=== PATIENT | male | born 1955 | race Caucasian/White ===

== ENCOUNTER 2016-09-14 08:14 | Emergency (ER) | payer OTHER ==
[2016-09-14 08:27] VITALS: BP 151/78
--- NOTE | 2016-09-14 09:15 | UC ---
Dizzy HPI HPI Summary: Motion sickness, dizziness started 2 days ago, worsened last night: room spinning and nausea when lying down and turning head. Head feels full. He tells me that he doesnt ever feel well. has psoriatic arthritris and recently started embrel. His states that junior thinks it is bc the embrel. IDDM. last a1c was 4 mo ago in 9 range, which was improved. he has appt next wk for labs and pcp chronic ov. Has facial pressure and pain. always has numbing in arms and legs. no fever. no slurred speech, no weakness, slurred speech or confusion. He feels room spinniong dizziness, doesnt feel like he will pass out. sx occur when he moves suddenly, changes position or turning his head. nausea occurs with the room spinning. - History Of Current Complaint Chief Complaint: UCDizziness Stated Complaint: NAUSEA,DIZZY Time Seen by Provider: 09/14/16 08:42 - Allergies/Home Medications Allergies/Adverse Reactions: Allergies Allergy/AdvReac Type Severity Reaction Status Date / Time Cefuroxime [From Ceftin] Allergy Hallucinati Verified 11/07/12 12:12 ons metformin Allergy Diarrhea Uncoded 09/14/16 08:27 Home Medications: Home Medications Diclofenac Sodium EC TAB* [Voltaren EC TAB*] 75 mg PO TID PRN 09/14/16 [History Confirmed 09/14/16] Etanercept SYR (NF) [Enbrel (NF)] 50 mg SUBCUT Q7D 09/14/16 [History Confirmed 09/14/16] Exenatide [Bydureon] 2 mg SC WEEKLY 09/14/16 [History Confirmed 09/14/16] Triamcinolone 0.1% Oint (NF) [Triamcinolone Acetonide] 1 dose TOPICAL ONCE 09/14 [History Confirmed 09/14/16] PMH/Surg Hx/FS Hx/Imm Hx Previously Healthy: No - chronic illnesses listed below. Endocrine History Of: Reports: Diabetes - insulin Cardiovascular History Of: Reports: Hypertension - Surgical History Surgical History: None - Family History Known Family History: Positive: Diabetes - Social History Alcohol Use: None Substance Use Type: Marijuana Substance Use Comment - Amount & Last Used: not lately Smoking Status (MU): Former Smoker Review of Systems Constitutional: Negative, Fatigue Skin: Negative Eyes: Negative ENT: Negative, Other - sinus pressure Respiratory: Negative Cardiovascular: Negative Gastrointestinal: Vomiting, Other - nausea Genitourinary: Negative Motor: Negative Neurovascular: Negative Musculoskeletal: Arthralgia - psoriatic arthritis Neurological: Paresthesia - chronic Psychological: Negative All Other Systems Reviewed And Are Negative: Yes Physical Exam Triage Information Reviewed: Yes Appearance: Well-Appearing, No Pain Distress - mild distress, Well-Nourished Vital Signs: Initial Vital Signs Temp 97.8 F 09/14/16 08:17 Pulse 75 09/14/16 08:17 Resp 18 09/14/16 08:17 BP 151/78 09/14/16 08:17 Pulse Ox 97 09/14/16 08:17 Vital Signs Reviewed: Yes Eye Exam: Normal, Other - + b/l nystagmus horiziontal, no vertical nystagmus Eyes: Positive: Conjunctiva Clear ENT: Positive: Hearing grossly normal, Pharynx normal, Tonsillar exudate, Other : - b/l maxillary and frontal tenderness Neck exam: Normal Neck: Positive: Supple, Nontender, No Lymphadenopathy, Other: - no bruits Respiratory Exam: Normal Respiratory: Positive: Lungs clear, Normal breath sounds, No respiratory distress, No accessory muscle use Cardiovascular Exam: Normal Cardiovascular: Positive: RRR, No Murmur, Pulses Normal, Brisk Capillary Refill Abdominal Exam: Normal Abdomen Description: Positive: Nontender - obese., Soft Musculoskeletal Exam: Normal Neurological Exam: Other Neurological: Positive: Alert, Muscle Tone Normal - neg rhomberg, no pronator drift, strength 5/5 b/l UE and LE. Psychological Exam: Normal Skin Exam: Normal Dizzy Course/Dx - Differential Dx/Diagnosis Differential Diagnosis/HQI/PQRI: Benign Paroxysmal Positional Vertigo, Labyrinthitis, Meniere's Disease, Transient Ischemic Attack, Vasovagal Reaction Provider Diagnoses: sinusitis, labyrinthitis Discharge - Discharge Plan Condition: Stable Disposition: HOME Prescriptions: Amoxicillin (*) 875 mg PO BID #20 tab Meclizine HCl [Meclizine 25] 25 mg PO Q6HR PRN #20 tab PRN Reason: Nausea Patient Education Materials: Sinusitis (ED), Labyrinthitis (ED) Referrals: Tamara Crystal MD [Primary Care Provider] - 1 Day Additional Instructions: Watch for any signs of stroke that we reviewed today - one sided weakness, numbing, slurred speech, facial droop, confusion. Watch your blood sugars with infection and go to ER if > 400. Hold the embrel until your obstetrician/gynecologist wants you to restart. You said you have an appt there in 4 days.
== END 2016-09-14 09:55 | disposition home or self-care (01) ==
LOC: UCCORT 08:14
DX: J32.9 Chronic sinusitis, unspecified (principal); H83.09 Labyrinthitis, unspecified ear; E11.9 Type 2 diabetes mellitus without complications; Z79.4 Long term (current) use of insulin; M06.9 Rheumatoid arthritis, unspecified; Z88.1 Allergy status to other antibiotic agents; Z88.8 Allergy status to other drugs, medicaments and biological substances; Z87.891 Personal history of nicotine dependence
CPT/HCPCS: 99212; G0463

== ENCOUNTER 2018-02-03 09:11 | Emergency (ER) | payer OTHER ==
--- OUTSIDE RECORDS SUMMARY | 2018-02-03 09:19 | XMS REPORT ---
:1955 External Reference #:[id number] Author Organization [facility] Address [address] [address] Phone [phone] Care Team Providers Name Role Phone Tamara Crystal MD Primary Care Physician Unavailable Payers Type Date Identification Numbers Payment Provider Subscriber Commercial Policy Number: [id number] [employer] [place] PayID: [id number] [address] [place] [address] Problems Description No Information Family History Date Family Member(s) Problem(s) Comments General Rheumatoid Arthritis General GM with Ra, father had psoriasis Social History Type Date Description Comments ETOH Use Denies alcohol use Smoking Patient is a former smoker Pt. smoked for 6-7 years less than a pack a day. quit in 1977. Exercise Type/Frequency Used to play golf sporadically Allergies, Adverse Reactions, Alerts Date Description Reaction Status Severity Comments 04/21/2016 Metformin active loose stools 04/21/2016 Ceftin active hives Medications Medication Date Status Form Strength Qnty SIG Indications Ordering Provider Wrist Brace 02/14/ Active Misc 2units use for the L40.59 Stew 2017 wrists daily to amber Burris M.D. tunnel syndrome Wrist Splint 02/14/ Active Misc 2units use daily to L40.59 Stew 2017 help with carpal zulma Burris syndrome Gloria.DGlenda Humira Pen 01/18/ Active PNKT 40mg/0.8ML 18unit inject 40 mg L40.50 Stew Will s subcutaneously cheryl Burris other week Sarah L40.59 L40.9 Folic Acid 09/18/2016 Active Tablets 1mg 90tabs 1 by mouth Z79.899 Stew every day [place], M.D. Methotrexate 09/18/2016 Active Tablets 2.5m 90tabs Take 6 L40.59 Stew g capsules/tablet [place], s by mouth once M.D. weekly Lisinopril Active Tablets 20mg 1 by mouth Unknown every day Triamcinolone Active Ointment 0.1% every day as L40.9 Unknown Acetonide needed Trulicity Active Solution 1.5m inject Unknown Pen-Injec g/0. subcutaneously t 5ML weekly Farxiga Active Tablets 10mg 1 by mouth Unknown every day Basaglar Active Solution 100U 48 units daily Unknown Kwikpen Pen-Injec nit/ t ML Nabumetone Active Tablets 750m 2 tabs every Unknown g morning Oxycodone HCL Active Capsules 1-2 tabs by Unknown mouth every 6 hours as needed pain Cosentyx 06/26/2017 - Hx Soln 150m 2ml inject 150 mg L40.50 07/20/2017 Prefill g/ml sc weekly for 4 [place], Syringe weeks then SQ M.D. every 4 weeks L40.59 L40.9 Cymbalta 02/14/2017 - Hx Caps DR Moreno 30mg 42caps 1 by mouth every Stew 03/26/2017 day for 1 week [place], then 2 daily M.D. ongoing Ibuprofen 01/11/2017 - Hx Capsules 200mg as needed L40. Zsofia 01/11/2017 59 Stephen, BATT PACKER Humira 01/11/2017 - Hx PSKT 40mg/0.8 6units inject 40 mg L40. Stew 01/18/2017 ML subcutaneous 50 [place], once every other M.D. week prefilled syringe L40.59 L40.9 Wrist Splint 01/11/2017 - Hx Misc 2units use daily G56.00 Stew 02/14/2017 to help [place], with M.D. numbness and tingling in the right and left hand Ibuprofen 11/27/2016 - Hx Tablets 800m 90tabs 1 tab by L40.59 Zsofia 01/11/2017 g mouth three Stephen, times a day BATT PACKER as needed Diclofenac 07/03/2016 - Hx Tablets DR 75mg 60tabs take one L40.59 Zsofia Sodium 11/27/2016 tablet by Stephen, mouth twice BATT PACKER a day Enbrel 05/15/2016 - Hx Solution 50mg 3.92units inject one L40.50 Zsofia Sureclick 01/11/2017 Auto-Inject /ml pen (50 mg) Stephen, under the BATT PACKER skin every week L40.59 L40.9 Otezla 04/21/2016 - Hx Tablets 30mg 60tabs 1 by mouth L40.50 Stew 05/15/2016 twice a Dayton, day, do M.D. not start until you are finished with the sample pack we provided today Otezla 04/21/2016 - Hx TBPK 10& QS day1:10mg Stew 05/15/2016 20& am, Dayton, 30mg day2:10 mg M.D. bid,day3: 10mg am, 20mg pm, day4:20mg bid, day5: 20mg am, 30 mg pm, then continue on 30 mg bid. Bydureon - Hx Pen 2mg inject 2 Unknown 01/11/2017 mg sc weekly Cyclobenzaprine - Hx Tablets 10mg one by Unknown HCL 04/21/2016 mouth three times a day as needed spasm Furosemide - Hx Tablets 20mg Does Not Unknown 01/11/2017 Take Lantus Solostar - Hx Solution 100Unit 40 units Unknown 01/11/2017 Pen-Inject /ML twice daily Humalog - Hx Solution 100Unit sliding Unknown 03/26/2017 /ML scale Nabumetone - Hx Tablets 750mg take one Unknown 03/26/2017 tablet by mouth twice a day Medications Administered in Office Medication Date Status Form Strength Qnty SIG Indications Ordering Provider PPD Administered Injection Stew Burris M.D. Immunizations CPT Code Status Date Vaccine Reaction Lot # [id number] Given 06/26/2017 Pneumonia Vaccine no reaction noted [id number] Given 06/26/2017 Influenza Virus Vaccine, no immediate reaction [id number] Quadrivalent, Split, noted Preservative Free 29973 Given 07/03/2016 Influenza Virus Vaccine, [id number] Quadrivalent, Split Virus, Im Use 11494 Given 05/15/2016 Pneumococcal Conjugate No reaction noted [id number] Vaccine 13 Valent For Intramuscular Use Vital Signs Date Vital Result Comment 01/23/2018 Height 72 inches 6'0" Weight 352.00 lb Heart Rate 68 /min BP Systolic Sitting 160 mmHg BP Diastolic Sitting 110 mmHg Respiratory Rate 16 /min Pain Level 8 BMI (Body Mass Index) 47.7 kg/m2 09/26/2017 Height 72 inches 6'0" Weight 346.00 lb Heart Rate 72 /min BP Systolic Sitting 140 mmHg BP Diastolic Sitting 88 mmHg Respiratory Rate 16 /min Body Temperature 98.2 F Pain Level 6 BMI (Body Mass Index) 46.9 kg/m2 06/26/2017 Height 72 inches 6'0" Weight 345.25 lb Heart Rate 75 /min BP Systolic 135 mmHg BP Diastolic 85 mmHg Body Temperature 98.1 F O2 % BldC Oximetry 95 % BMI (Body Mass Index) 46.8 kg/m2 03/26/2017 Height 72 inches 6'0" Weight 345.00 lb Heart Rate 80 /min BP Systolic Sitting 140 mmHg BP Diastolic Sitting 90 mmHg Respiratory Rate 14 /min Pain Level 5 BMI (Body Mass Index) 46.8 kg/m2 02/14/2017 Height 72 inches 6'0" Weight 354.00 lb Heart Rate 80 /min BP Systolic Sitting 150 mmHg BP Diastolic Sitting 84 mmHg Respiratory Rate 20 /min Pain Level 8 BMI (Body Mass Index) 48.0 kg/m2 01/11/2017 Height 72 inches 6'0" Weight 354.00 lb Heart Rate 88 /min BP Systolic Sitting 134 mmHg BP Diastolic Sitting 70 mmHg Respiratory Rate 16 /min Pain Level 8 BMI (Body Mass Index) 48.0 kg/m2 11/27/2016 Weight 346.00 lb Heart Rate 88 /min BP Systolic Sitting 138 mmHg BP Diastolic Sitting 84 mmHg Respiratory Rate 15 /min Pain Level 7 O2 % BldC Oximetry 97 % 09/18/2016 Weight 362.31 lb Heart Rate 95 /min BP Systolic Sitting 130 mmHg BP Diastolic Sitting 8 mmHg Pain Level 7 07/03/2016 Height 72 inches 6'0" Weight 361.00 lb Heart Rate 87 /min BP Systolic Sitting 130 mmHg BP Diastolic Sitting 80 mmHg O2 % BldC Oximetry 97 % BMI (Body Mass Index) 49.0 kg/m2 05/15/2016 Height 72 inches 6'0" Weight 361.25 lb Heart Rate 84 /min BP Systolic Sitting 130 mmHg BP Diastolic Sitting 90 mmHg Respiratory Rate 18 /min Body Temperature 97.8 F Pain Level 7 BMI (Body Mass Index) 49.0 kg/m2 04/21/2016 Height 72 inches 6'0" Weight 361.00 lb Heart Rate 72 /min BP Systolic Sitting 140 mmHg BP Diastolic Sitting 90 mmHg Respiratory Rate 20 /min Body Temperature 97.6 F Pain Level 7 BMI (Body Mass Index) 49.0 kg/m2 Results Test Date Test Result H/L Range Note Laboratory test finding 01/18/2018 C Reactive Protein 9.14 mg/L High < 5.00 1 Erythrocyte Sed Rate 22 mm/Hr High 0-20 CBC Auto Diff 01/18/2018 White Blood Count 7.8 10^3/uL 3.5-10.8 Red Blood Count 4.87 10^6/uL 4.0-5.4 Hemoglobin 15.1 g/dL 14.0-18.0 Hematocrit 44 % 42-52 Mean Corpuscular Volume 89 fL 80-94 Mean Corpuscular Hemoglobin 31 pg 27-31 Mean Corpuscular HGB Conc 35 g/dL 31-36 Red Cell Distribution Width 15 % 10.5-15 Platelet Count 245 10^3/uL 150-450 Mean Platelet Volume 10.1 um3 7.4-10.4 Abs Neutrophils 5.0 10^3/uL 1.5-7.7 Abs Lymphocytes 1.8 10^3/uL 1.0-4.8 Abs Monocytes 0.7 10^3/uL 0-0.8 Abs Eosinophils 0.2 10^3/uL 0-0.6 Abs Basophils 0.1 10^3/uL 0-0.2 Abs Nucleated RBC 0 10^3/uL Granulocyte % 64.2 % 38-83 Lymphocyte % 23.3 % Low 25-47 Monocyte % 9.2 % High 0-7 Eosinophil % 2.2 % 0-6 Basophil % 1.1 % 0-2 Nucleated Red Blood Cells % 0.1 Comp Metabolic Panel 01/18/2018 Sodium 141 mmol/L 139-145 Potassium 4.8 mmol/L 3.5-5.0 Chloride 108 mmol/L 101-111 Co2 Carbon Dioxide 25 mmol/L 22-32 Anion Gap 8 mmol/L 2-11 Glucose 163 mg/dL High 70-100 Blood Urea Nitrogen 16 mg/dL 6-24 Creatinine 0.98 mg/dL 0.67-1.17 BUN/Creatinine Ratio 16.3 8-20 Calcium 9.1 mg/dL 8.6-10.3 Total Protein 6.9 g/dL 6.4-8.9 Albumin 3.9 g/dL 3.2-5.2 Globulin 3.0 g/dL 2-4 Albumin/Globulin Ratio 1.3 1-3 Total Bilirubin 0.40 mg/dL 0.2-1.0 Alkaline Phosphatase 62 U/L 34-104 Alt 22 U/L 7-52 Ast 16 U/L 13-39 Egfr Non- 77.0 >60 Egfr 99.0 >60 2 Laboratory test finding 09/21/2017 Erythrocyte Sed Rate 29 mm/Hr High 0- 20 3 C Reactive Protein 10.81 mg/L High < 5.00 4 CBC Auto Diff 09/21/2017 White Blood Count 8.0 10^3/uL 3.5-10.8 Red Blood Count 5.31 10^6/uL 4.0-5.4 Hemoglobin 16.4 g/dL 14.0-18.0 Hematocrit 48 % 42-52 Mean Corpuscular Volume 90 fL 80-94 Mean Corpuscular Hemoglobin 31 pg 27-31 Mean Corpuscular HGB Conc 34 g/dL 31-36 Red Cell Distribution Width 13 % 10.5-15 Platelet Count 257 10^3/uL 150-450 Mean Platelet Volume 10 um3 7.4-10.4 Abs Neutrophils 5.3 10^3/uL 1.5-7.7 Abs Lymphocytes 1.7 10^3/uL 1.0-4.8 Abs Monocytes 0.8 10^3/uL 0-0.8 Abs Eosinophils 0.1 10^3/uL 0-0.6 Abs Basophils 0.1 10^3/uL 0-0.2 Abs Nucleated RBC 0.1 10^3/uL Granulocyte % 66.4 % 38-83 Lymphocyte % 21.1 % Low 25-47 Monocyte % 9.9 % High 1-9 Eosinophil % 1.6 % 0-6 Basophil % 1.0 % 0-2 Nucleated Red Blood Cells % 0.6 Comp Metabolic Panel 09/21/2017 Sodium 137 mmol/L 133-145 Potassium 4.5 mmol/L 3.5-5.0 Chloride 104 mmol/L 101-111 Co2 Carbon Dioxide 27 mmol/L 22-32 Anion Gap 6 mmol/L 2-11 Glucose 167 mg/dL High 70-100 Blood Urea Nitrogen 19 mg/dL 6-24 Creatinine 1.05 mg/dL 0.67-1.17 BUN/Creatinine Ratio 18.1 8-20 Calcium 9.7 mg/dL 8.6-10.3 Total Protein 7.5 g/dL 6.4-8.9 Albumin 4.2 g/dL 3.2-5.2 Globulin 3.3 g/dL 2-4 Albumin/Globulin Ratio 1.3 1-3 Total Bilirubin 0.40 mg/dL 0.2-1.0 Alkaline Phosphatase 59 U/L 34-104 Alt 21 U/L 7-52 Ast 15 U/L 13-39 Egfr Non- 71.3 >60 Egfr 91.7 >60 5 Laboratory test finding 06/21/2017 C Reactive Protein 8.81 mg/L High < 5.00 6 Erythrocyte Sed Rate 20 mm/Hr 0-20 7 CBC Auto Diff 06/21/2017 White Blood Count 7.0 10^3/uL 3.5-10.8 Red Blood Count 4.92 10^6/uL 4.0-5.4 Hemoglobin 15.5 g/dL 14.0-18.0 Hematocrit 44 % 42-52 Mean Corpuscular Volume 90 fL 80-94 Mean Corpuscular Hemoglobin 32 pg High 27-31 Mean Corpuscular HGB Conc 35 g/dL 31-36 Red Cell Distribution Width 14 % 10.5-15 Platelet Count 263 10^3/uL 150-450 Mean Platelet Volume 10 um3 7.4-10.4 Abs Neutrophils 4.0 10^3/uL 1.5-7.7 Abs Lymphocytes 2.0 10^3/uL 1.0-4.8 Abs Monocytes 0.8 10^3/uL 0-0.8 Abs Eosinophils 0.1 10^3/uL 0-0.6 Abs Basophils 0.1 10^3/uL 0-0.2 Abs Nucleated RBC 0 10^3/uL Granulocyte % 57.2 % 38-83 Lymphocyte % 28.3 % 25-47 Monocyte % 11.7 % High 1-9 Eosinophil % 1.8 % 0-6 Basophil % 1.0 % 0-2 Nucleated Red Blood Cells % 0 Comp Metabolic Panel 06/21/2017 Sodium 137 mmol/L 133-145 Potassium 4.3 mmol/L 3.5-5.0 Chloride 103 mmol/L 101-111 Co2 Carbon Dioxide 27 mmol/L 22-32 Anion Gap 7 mmol/L 2-11 Glucose 174 mg/dL High 70-100 Blood Urea Nitrogen 18 mg/dL 6-24 Creatinine 1.00 mg/dL 0.67-1.17 BUN/Creatinine Ratio 18.0 8-20 Calcium 9.3 mg/dL 8.6-10.3 Total Protein 6.8 g/dL 6.4-8.9 Albumin 3.9 g/dL 3.2-5.2 Globulin 2.9 g/dL 2-4 Albumin/Globulin Ratio 1.3 1-3 Total Bilirubin 0.40 mg/dL 0.2-1.0 Alkaline Phosphatase 48 U/L 34-104 Alt 25 U/L 7-52 Ast 15 U/L 13-39 Egfr Non- 75.5 >60 Egfr 97.1 >60 8 Laboratory test finding 02/12/2017 C Reactive Protein 10.53 mg/L High &lt ; 5.00 9 Erythrocyte Sed Rate 29 mm/Hr High 0-20 10 Comp Metabolic Panel 02/12/2017 Sodium 133 mmol/L 133-145 Potassium 4.4 mmol/L 3.5-5.0 Chloride 101 mmol/L 101-111 Co2 Carbon Dioxide 25 mmol/L 22-32 Anion Gap 7 mmol/L 2-11 Glucose 218 mg/dL High 70-100 Blood Urea Nitrogen 15 mg/dL 6-24 Creatinine 0.91 mg/dL 0.67-1.17 BUN/Creatinine Ratio 16.5 8-20 Calcium 9.2 mg/dL 8.6-10.3 Total Protein 6.9 g/dL 6.4-8.9 Albumin 3.9 g/dL 3.2-5.2 Globulin 3.0 g/dL 2-4 Albumin/Globulin Ratio 1.3 1-3 Total Bilirubin 0.40 mg/dL 0.2-1.0 Alkaline Phosphatase 52 U/L 34-104 Alt 31 U/L 7-52 Ast 18 U/L 13-39 Egfr Non- 84.1 >60 Egfr 108.2 >60 11 CBC Auto Diff 02/12/2017 White Blood Count 9.2 10^3/uL 3.5-10.8 Red Blood Count 4.86 10^6/uL 4.0-5.4 Hemoglobin 15.0 g/dL 14.0-18.0 Hematocrit 44 % 42-52 Mean Corpuscular Volume 90 fL 80-94 Mean Corpuscular Hemoglobin 31 pg 27-31 Mean Corpuscular HGB Conc 34 g/dL 31-36 Red Cell Distribution Width 14 % 10.5-15 Platelet Count 257 10^3/uL 150-450 Mean Platelet Volume 10 um3 7.4-10.4 Abs Neutrophils 5.6 10^3/uL 1.5-7.7 Abs Lymphocytes 2.6 10^3/uL 1.0-4.8 Abs Monocytes 0.7 10^3/uL 0-0.8 Abs Eosinophils 0.1 10^3/uL 0-0.6 Abs Basophils 0.1 10^3/uL 0-0.2 Abs Nucleated RBC 0 10^3/uL Granulocyte % 61.3 % 38-83 Lymphocyte % 28.2 % 25-47 Monocyte % 7.9 % 1-9 Eosinophil % 1.2 % 0-6 Basophil % 1.4 % 0-2 Nucleated Red Blood Cells % 0 Laboratory test finding 09/19/2016 Erythrocyte Sed Rate 25 mm/Hr High 0- 20 C Reactive Protein 14.63 mg/L High < 5.00 12 Comp Metabolic Panel 09/19/2016 Sodium 135 mmol/L 133-145 Potassium 4.7 mmol/L 3.5-5.0 Chloride 101 mmol/L 101-111 Co2 Carbon Dioxide 27 mmol/L 22-32 Anion Gap 7 mmol/L 2-11 Glucose 344 mg/dL High 70-100 Blood Urea Nitrogen 21 mg/dL 6-24 Creatinine 1.25 mg/dL High 0.67-1.17 BUN/Creatinine Ratio 16.8 8-20 Calcium 9.6 mg/dL 8.6-10.3 Total Protein 6.8 g/dL 6.4-8.9 Albumin 3.9 g/dL 3.2-5.2 Globulin 2.9 g/dL 2-4 Albumin/Globulin Ratio 1.3 1-3 Total Bilirubin 0.40 mg/dL 0.2-1.0 Alkaline Phosphatase 51 U/L 34-104 Alt 39 U/L 7-52 Ast 19 U/L 13-39 Egfr Non- 58.5 >60 Egfr 75.3 >60 13 CBC Auto Diff 09/19/2016 White Blood Count 8.1 10^3/uL 3.5-10.8 Red Blood Count 5.06 10^6/uL 4.0-5.4 Hemoglobin 15.1 g/dL 14.0-18.0 Hematocrit 45 % 42-52 Mean Corpuscular Volume 88 fL 80-94 Mean Corpuscular Hemoglobin 30 pg 27-31 Mean Corpuscular HGB Conc 34 g/dL 31-36 Red Cell Distribution Width 13 % 10.5-15 Platelet Count 251 10^3/uL 150-450 Mean Platelet Volume 10 um3 7.4-10.4 Abs Neutrophils 4.7 10^3/uL 1.5-7.7 Abs Lymphocytes 2.3 10^3/uL 1.0-4.8 Abs Monocytes 0.9 10^3/uL High 0-0.8 Abs Eosinophils 0.2 10^3/uL 0-0.6 Abs Basophils 0.1 10^3/uL 0-0.2 Abs Nucleated RBC 0 10^3/uL Granulocyte % 58.3 % 38-83 Lymphocyte % 28.1 % 25-47 Monocyte % 10.6 % High 1-9 Eosinophil % 1.9 % 0-6 Basophil % 1.1 % 0-2 Nucleated Red Blood Cells % 0 Comp Metabolic Panel 06/29/2016 Sodium 132 mmol/L Low 133-145 Potassium 4.4 mmol/L 3.5-5.0 Chloride 99 mmol/L Low 101-111 Co2 Carbon Dioxide 27 mmol/L 22-32 Anion Gap 6 mmol/L 2-11 Glucose 192 mg/dL High 70-100 Blood Urea Nitrogen 22 mg/dL 6-24 Creatinine 1.04 mg/dL 0.67-1.17 BUN/Creatinine Ratio 21.2 High 8-20 Calcium 9.4 mg/dL 8.6-10.3 Total Protein 7.0 g/dL 6.4-8.9 Albumin 4.0 g/dL 3.2-5.2 Globulin 3.0 g/dL 2-4 Albumin/Globulin Ratio 1.3 1-3 Total Bilirubin 0.50 mg/dL 0.2-1.0 Alkaline Phosphatase 49 U/L 34-104 Alt 23 U/L 7-52 Ast 14 U/L 13-39 Egfr Non- 72.4 >60 Egfr 93.1 >60 14 CBC Auto Diff 06/29/2016 White Blood Count 7.9 10^3/uL 3.5-10.8 Red Blood Count 5.09 10^6/uL 4.0-5.4 Hemoglobin 15.0 g/dL 14.0-18.0 Hematocrit 44 % 42-52 Mean Corpuscular Volume 87 fL 80-94 Mean Corpuscular Hemoglobin 29 pg 27-31 Mean Corpuscular HGB Conc 34 g/dL 31-36 Red Cell Distribution Width 14 % 10.5-15 Platelet Count 280 10^3/uL 150-450 Mean Platelet Volume 10 um3 7.4-10.4 Abs Neutrophils 4.8 10^3/uL 1.5-7.7 Abs Lymphocytes 2.3 10^3/uL 1.0-4.8 Abs Monocytes 0.7 10^3/uL 0-0.8 Abs Eosinophils 0.1 10^3/uL 0-0.6 Abs Basophils 0.1 10^3/uL 0-0.2 Abs Nucleated RBC 0 10^3/uL Granulocyte % 60.4 % 38-83 Lymphocyte % 28.8 % 25-47 Monocyte % 8.8 % 1-9 Eosinophil % 1.1 % 0-6 Basophil % 0.9 % 0-2 Nucleated Red Blood Cells % 0.1 Laboratory test finding 06/29/2016 C Reactive Protein 11.69 mg/L High &lt ; 5.00 15 Erythrocyte Sed Rate 23 mm/Hr High 0-20 16 1 Acute inflammation: >10.00 2 Because ethnic data is not always readily available, this report includes an eGFR for both -Americans and non- Americans. The National Kidney Disease Education Program (NKDEP) does not endorse the use of the MDRD equation for patients that are not between the ages of 18 and 70, are , have extremes of body size, muscle mass, or nutritional status, or are non- or non-. According to the National Kidney Foundation, irrespective of diagnosis, the stage of the disease is based on the level of kidney function: Stage Description GFR(mL/min/1.73 m(2)) 1 Kidney damage with normal or decreased GFR 90 2 Kidney damage with mild decrease in GFR 60-89 3 Moderate decrease in GFR 30-59 4 Severe decrease in GFR 15-29 5 Kidney failure <15 (or dialysis) 3 Please check 2 days before follow up 4 Acute inflammation: >10.00 5 Because ethnic data is not always readily available, this report includes an eGFR for both -Americans and non- Americans. The National Kidney Disease Education Program (NKDEP) does not endorse the use of the MDRD equation for patients that are not between the ages of 18 and 70, are , have extremes of body size, muscle mass, or nutritional status, or are non- or non-. According to the National Kidney Foundation, irrespective of diagnosis, the stage of the disease is based on the level of kidney function: Stage Description GFR(mL/min/1.73 m(2)) 1 Kidney damage with normal or decreased GFR 90 2 Kidney damage with mild decrease in GFR 60-89 3 Moderate decrease in GFR 30-59 4 Severe decrease in GFR 15-29 5 Kidney failure <15 (or dialysis) 6 Acute inflammation: >10.00 7 Standing labs every 2 months 8 Because ethnic data is not always readily available, this report includes an eGFR for both -Americans and non- Americans. The National Kidney Disease Education Program (NKDEP) does not endorse the use of the MDRD equation for patients that are not between the ages of 18 and 70, are , have extremes of body size, muscle mass, or nutritional status, or are non- or non-. According to the National Kidney Foundation, irrespective of diagnosis, the stage of the disease is based on the level of kidney function: Stage Description GFR(mL/min/1.73 m(2)) 1 Kidney damage with normal or decreased GFR 90 2 Kidney damage with mild decrease in GFR 60-89 3 Moderate decrease in GFR 30-59 4 Severe decrease in GFR 15-29 5 Kidney failure <15 (or dialysis) 9 Acute inflammation: >10.00 10 Please check 2 days before follow up 11 Because ethnic data is not always readily available, this report includes an eGFR for both -Americans and non- Americans. The National Kidney Disease Education Program (NKDEP) does not endorse the use of the MDRD equation for patients that are not between the ages of 18 and 70, are , have extremes of body size, muscle mass, or nutritional status, or are non- or non-. According to the National Kidney Foundation, irrespective of diagnosis, the stage of the disease is based on the level of kidney function: Stage Description GFR(mL/min/1.73 m(2)) 1 Kidney damage with normal or decreased GFR 90 2 Kidney damage with mild decrease in GFR 60-89 3 Moderate decrease in GFR 30-59 4 Severe decrease in GFR 15-29 5 Kidney failure <15 (or dialysis) 12 Acute inflammation: >10.00 13 Because ethnic data is not always readily available, this report includes an eGFR for both -Americans and non- Americans. The National Kidney Disease Education Program (NKDEP) does not endorse the use of the MDRD equation for patients that are not between the ages of 18 and 70, are , have extremes of body size, muscle mass, or nutritional status, or are non- or non-. According to the National Kidney Foundation, irrespective of diagnosis, the stage of the disease is based on the level of kidney function: Stage Description GFR(mL/min/1.73 m(2)) 1 Kidney damage with normal or decreased GFR 90 2 Kidney damage with mild decrease in GFR 60-89 3 Moderate decrease in GFR 30-59 4 Severe decrease in GFR 15-29 5 Kidney failure <15 (or dialysis) 14 Because ethnic data is not always readily available, this report includes an eGFR for both -Americans and non- Americans. The National Kidney Disease Education Program (NKDEP) does not endorse the use of the MDRD equation for patients that are not between the ages of 18 and 70, are , have extremes of body size, muscle mass, or nutritional status, or are non- or non-. According to the National Kidney Foundation, irrespective of diagnosis, the stage of the disease is based on the level of kidney function: Stage Description GFR(mL/min/1.73 m(2)) 1 Kidney damage with normal or decreased GFR 90 2 Kidney damage with mild decrease in GFR 60-89 3 Moderate decrease in GFR 30-59 4 Severe decrease in GFR 15-29 5 Kidney failure <15 (or dialysis) 15 Acute inflammation: >10.00 16 Please check 2 days before next visit Procedures Date CPT Code Description Status 02/06/2017 01475 Nerve Conduction 07-08 Studies Completed 02/06/2017 35165 Needle Electromyography Complete, Five Or More Muscles Completed Studied Encounters Type Date Location Provider CPT E/M Dx Office Visit 01/23/2018 [facility] Stew Burris M.D. 37814 L40.50 1:00p Of [facility] Z79.899 R79.82 R20.8 Office Visit 09/26/2017 1:20p [facility] Stew Burris 29105 L40.50 Of [employer] M.D. Z79.899 R79.82 M54.5 Office Visit 06/26/2017 11:20a [facility] Stew Burris 18353 L40.50 Of [employer] M.D. Z79.899 R79.82 M54.5 Z23 Office Visit 03/26/2017 3:20p [facility] Stew Burris 82426 L40.59 Of [employer] Operator M.D. Z79.899 R79.82 M54.5 Office Visit 02/14/2017 3:20p [facility] Stew Burris 28035 L40.59 Of [employer] M.D. Z79.899 R79.82 M54.5 G56.00 G89.29 Office Visit 01/11/2017 1:20p [facility] Stew Burris 16067 L40.59 Of [employer] Operator M.D. Z79.899 K21.9 R79.82 M54.5 G56.00 Office Visit 11/27/2016 3:30p [facility] Of Mayur Mitchell 19028 L40.59 [facility] BATT PACKER L40.9 N39.0 N20.9 Z79.899 Office Visit 09/18/2016 3:30p [facility] 86652 L40.59 [facility] BATT PACKER L40.9 Z79.899 K21.9 Office Visit 07/03/2016 3:30p [facility] [place], 25803 L40.59 [facility] L40.9 R79.82 Z79.899 Z23 Office Visit 05/15/2016 4:20p [facility] Of Stew Burris M.D. 24853 Z23 [facility] L40.50 Z79.899 M54.5 M25.552 Z11.1 M47.896 Office Visit 04/21/2016 12:00p [facility] Stew Burris 42820 L40.50 Of [facility]a [facility] Z79.899 M54.5 M25.552 M79.671 M79.672 M06.4 Plan of Care Future Appointment(s):04/25/2018 2:00 pm - Stew Burris M.D. at [facility]01/23/2018 - Stew Burris M.D.L40.50 Arthropathic psoriasis, [id number] Other assisted (current) drug xnvhqhoJ13.82 Elevated C- reactive protein (CRP)R20.8 Other disturbances of skin sensationFollow up: Follow up in 2 or 3 months or sooner if needed
[2018-02-03 09:36] VITALS: BP 132/84
--- NOTE | 2018-02-03 09:44 | UC ---
Ear Complaint HPI - HPI Summary HPI Summary: C/O bilateral ear fullness x 3-4 days with some unsteadiness especially with standing up fast. Poor sleeping. Some congestion with coughing. Some sinus pressure but no pain. Some sweats but no different than usual. - History of Current Complaint Chief Complaint: UCEar Stated Complaint: BILATERAL EAR BALANCE NAUSEA Time Seen by Provider: 02/03/18 09:31 Hx Obtained From: Patient Onset/Duration: Sudden Onset, Lasting Days - 4, Worse Since - onset Severity Initially: Mild Severity Currently: Moderate Pain Intensity: 5 Aggravating Factors: Nothing Alleviating Factors: Nothing Associated Signs/Symptoms: Positive: Hearing Loss, URI Symptoms - Allergies/Home Medications Allergies/Adverse Reactions: Allergies Allergy/AdvReac Type Severity Reaction Status Date / Time cefuroxime [From Ceftin] Allergy Hallucinati Verified 02/03/18 09:22 ons metformin Allergy Diarrhea Uncoded 09/14/16 08:27 Home Medications: Home Medications Adalimumab (NF) [Humira Pen (NF)] 40 mg SUBCUT WEEKLY 02/03/18 [History Confirmed 02/03/18] Dapagliflozin Propanediol [Farxiga] 5 mg PO DAILY 02/03/18 [History Confirmed ] Dulaglutide (NF) [Trulicity (NF)] 1.5 mg SUBCUT WEEKLY 02/03/18 [History Confirmed 02/03/18] Folic Acid TAB* [Folvite TAB*] 1 mg PO DAILY 02/03/18 [History Confirmed ] Insulin Glargine,Hum.rec.anlog [Basaglar Nikolepen U-100] 48 unit SC BID 02/03/18 [History Confirmed 02/03/18] Lisinopril TAB* [Prinivil TAB 10 MG*] 20 mg PO DAILY 02/03/18 [History Confirmed 02/03/18] Methotrexate TAB* 2.5 mg PO WEEKLY 02/03/18 [History Confirmed 02/03/18] Nabumetone TAB* [Relafen TAB*] 750 mg PO BID 02/03/18 [History Confirmed ] Oxycodone HCl 5 mg PO Q8H PRN 02/03/18 [History Confirmed 02/03/18] PMH/Surg Hx/FS Hx/Imm Hx - Additional Past Medical History Additional PMH: Psoriatic arthritis Endocrine History: Diabetes Cardiovascular History: Hypertension - Surgical History Surgical History: Yes Surgery Procedure, Year, and Place: R shoulder - Family History Known Family History: Positive: Hypertension, Diabetes - Social History Occupation: Disabled Lives: With Family Alcohol Use: None Substance Use Type: Prescribed Substance Use Comment - Amount & Last Used: not lately Smoking Status (MU): Former Smoker When Did the Patient Quit Smoking/Using Tobacco: 1977 Review of Systems Constitutional: Chills, Fatigue ENT: Sore Throat, Ear Ache, Nasal Discharge, Sinus Congestion Respiratory: Cough Neurological: Other - some vertigo symptoms. Is Patient Immunocompromised?: Yes - on methotrexate All Other Systems Reviewed And Are Negative: Yes Physical Exam Triage Information Reviewed: Yes Appearance: No Pain Distress, Ill-Appearing, Obese Vital Signs: Initial Vital Signs Temp 98.5 F 02/03/18 09:29 Pulse 67 02/03/18 09:29 Resp 20 02/03/18 09:29 BP 132/84 02/03/18 09:29 Pulse Ox 96 02/03/18 09:29 Vital Signs Reviewed: Yes Eyes: Positive: Conjunctiva Inflamed ENT: Positive: Pharynx normal, Nasal congestion, TMs normal Neck exam: Normal Respiratory: Positive: Lungs clear Cardiovascular Exam: Normal Musculoskeletal Exam: Normal Neurological Exam: Normal Psychological Exam: Normal Skin Exam: Normal Ear Complaint Course/Dx - Differential Dx/Diagnosis Differential Diagnosis/HQI/PQRI: Otitis Media, Pharyngitis, URI Provider Diagnoses: Acute URI. Acute sinusitis. Vertigo Discharge - Sign-Out/Discharge Documenting (check all that apply): Discharge/Admit/Transfer - Discharge Plan Condition: Stable Disposition: HOME Prescriptions: Amoxicillin PO (*) [Amoxicillin 875 MG (*)] 875 mg PO BID #20 tab Meclizine TAB* [Antivert 12.5 TAB*] 25 mg PO TID PRN #30 tab PRN Reason: Vertigo predniSONE TAB* [Deltasone 20 MG TAB*] 20 mg PO DAILY #18 tab Patient Education Materials: Sinusitis (ED), Amoxicillin (By mouth), Vertigo ( ED), Meclizine (By mouth), Prednisone (By mouth) Referrals: Tamara Crystal MD [Primary Care Provider] - - Billing Disposition and Condition Condition: STABLE Disposition: HOME
== END 2018-02-03 10:06 | disposition home or self-care (01) ==
LOC: UCCORT 09:11
DX: J06.9 Acute upper respiratory infection, unspecified (principal); J01.90 Acute sinusitis, unspecified; Z79.4 Long term (current) use of insulin; L40.50 Arthropathic psoriasis, unspecified; E11.9 Type 2 diabetes mellitus without complications; I10 Essential (primary) hypertension; Z83.3 Family history of diabetes mellitus; Z82.49 Family history of ischemic heart disease and other diseases of the circulatory system; Z87.891 Personal history of nicotine dependence; E66.9 Obesity, unspecified; R42 Dizziness and giddiness
CPT/HCPCS: 99212; G0463